=== PATIENT | female | born 1995 | race Caucasian/White ===

== ENCOUNTER 2021-12-28 23:33 | Emergency (ER) | payer OTHER ==
[2021-12-28 23:44] VITALS: BP 154/90; PULSE 85; RESP 19; TEMP 98
--- NOTE | 2021-12-29 00:17 | ED ---
General Adult HPI - General Chief complaint: Extremity Injury, Lower Stated complaint: lt leg bruising Time Seen by Provider: 12/28/21 23:50 Source: patient Mode of arrival: ambulatory - History of Present Illness Initial comments: Dictation was produced using [employer] dictation software. please excuse any grammatical, word or spelling errors. Chief Complaint: 26 yo female presents to the emergency department for left lower leg pain History of Present Illness: Patient is a 26-year-old female presents emergency department for evaluation of left leg injury. Patient states that 7 days ago she was at work when she struck the anterior badillo of her left lower leg with a metal door. The last 48 hours she noticed that there was some bruising localized around her left lateral malleolus. Patient has no pain at the ankle. She states that the pain is only at the anterior badillo The ROS documented in this emergency department record has been reviewed and co nfirmed by me. Those systems with pertinent positive or negative responses have been documented in the HPI. All other systems are other negative and/or noncontributory. PHYSICAL EXAM: General Impression: Alert and oriented x3, not in acute distress HEENT: Normocephalic atraumatic, extra-ocular movements intact, pupils equal and reactive to light bilaterally, mucous membranes moist. Cardiovascular: Heart regular rate and rhythm Chest: Able to complete full sentences, no retractions, no tachypnea Abdomen: abdomen soft, non-tender, non-distended, no organomegaly Musculoskeletal: Pulses present and equal in all extremities, no peripheral edema Laboratory: There does appear to be a area of ecchymoses on the anterior badillo. There also appears to be non-tender ecchymosis around the lateral malleolus Motor: no focal deficits noted Neurological: CN II-XII grossly intact, no focal motor or sensory deficits noted Skin: Intact with no visualized rashes Psych: Normal affect and mood ED course: 26-year-old female presents to the emergency department for bruising secondary to left lower leg injury. X-rays unremarkable. Vital signs are stable. Reassurance provided. Patient be discharged. - Related Data Home Medications Medication Instructions Recorded Confirmed Albuterol Sulfate [Proair Hfa] 2 puff INHALATION DAILY PRN 09/27/13 01/05/16 Budesonide/Formoterol Fumarate 2 puff INHALATION BID 09/27/13 01/05/16 [Symbicort 160-4.5 Mcg Inhaler] Famotidine [Pepcid] 1 tab PO DAILY PRN 09/27/13 01/05/16 Previous Rx's Medication Instructions Recorded Hydrocodone/Acetaminophen [[place] 1 each PO Q4HR PRN #30 tab 09/29/13 5-325] Famotidine [Pepcid] 20 mg PO DAILY #14 tablet 01/05/16 Allergies Allergy/AdvReac Type Severity Reaction Status Date / Time No Known Allergies Allergy Verified 12/28/21 23:44 Review of Systems ROS Statement: Those systems with pertinent positive or pertinent negative responses have been documented in the HPI. ROS Other: All systems not noted in ROS Statement are negative. Past Medical History Past Medical History: Asthma, COPD, GERD/Reflux, Neurologic Disorder Additional Past Medical History / Comment(s): MULTIPLE BRONCHITIS. MIGRAINES. HYPOTHYROID (NO MEDS) History of Any Multi-Drug Resistant Organisms: None Reported Past Surgical History: Cholecystectomy, Tonsillectomy Past Anesthesia/Blood Transfusion Reactions: No Reported Reaction Past Psychological History: Anxiety Past Alcohol Use History: Occasional Past Drug Use History: None Reported Course Vital Signs 12/28/21 23:39 Temperature 98 F Pulse Rate 85 Respiratory 19 Rate Blood Pressure 154/90 O2 Sat by Pulse 100 Oximetry Disposition Clinical Impression: Contusion of leg Disposition: HOME SELF-CARE Condition: Good Instructions (If sedation given, give patient instructions): Contusion in Adults (ED) Is patient prescribed a controlled substance at d/c from ED?: No Referrals: Sejal Chapman MD [Primary Care Provider] - 1-2 days Time of Disposition: 00:51
--- NOTE | 2021-12-29 00:47 | XR ---
EXAMINATION TYPE: XR tibia fibula LT DATE OF EXAM: 12/29/2021 COMPARISON: NONE HISTORY: Pain TECHNIQUE: 4 views FINDINGS: The tibia and fibula appear intact. There is plantar and Achilles calcaneal spurring. I see no fracture nor dislocation. The knee joint and ankle joint appear intact. IMPRESSION: No fracture seen.
== END 2021-12-29 01:04 | disposition home or self-care (01) ==
LOC: EC 23:33
DX: S80.12XA Contusion of left lower leg, initial encounter (principal); J44.9 Chronic obstructive pulmonary disease, unspecified; G43.909 Migraine, unspecified, not intractable, without status migrainosus; E03.9 Hypothyroidism, unspecified; F41.9 Anxiety disorder, unspecified; Z72.89 Other problems related to lifestyle; Z79.51 Long term (current) use of inhaled steroids; Z79.890 Hormone replacement therapy
CPT/HCPCS: 99283

== ENCOUNTER 2022-02-08 20:31 | Emergency (ER) | payer OTHER ==
[2022-02-08 21:29] VITALS: TEMP 98.2
--- NOTE | 2022-02-08 21:53 | XR ---
EXAMINATION TYPE: XR chest 2V DATE OF EXAM: 02/08/2022 COMPARISON: 11/06/2014 HISTORY: Cough TECHNIQUE: 2 view FINDINGS: Heart and mediastinum are normal. Lungs are clear. Diaphragm is normal. Bony thorax appears normal. IMPRESSION: Normal chest. No change.
[2022-02-08] MEDS ORDERED: predniSONE 20 MG TAB PO STA (22:46)
[2022-02-08] MEDS ORDERED: IPRATROPIUM-ALBUTEROL 3 ML NEB INHALATION STA (22:47)
--- NOTE | 2022-02-08 23:08 | ED ---
SOB HPI - General Chief Complaint: Shortness of Breath Stated Complaint: SOB, congestion Time Seen by Provider: 02/08/22 22:41 Source: patient, RN notes reviewed Mode of arrival: ambulatory Limitations: no limitations - History of Present Illness Initial Comments: patient presents to symptomology consistent with an asthma exacerbation. Mild wheezing. No respiratory distress or has a nebulizer at home which she used twice prior to arrival. She also takes a controller medication and has a rescue inhaler. patient COVID-19 one month ago and got over that. Patient has not had a fever. Clear runny nose, scratchy throat, No headache, no fever or chills, no changes in vision or hearing, POSITIVE runny nose, no sore throat or difficulty with speech, no neck pain, no chest pain, no abdominal pain, no nausea or vomiting, no changes in urination or bowel movements, no numbness or tingling, no extremity pain, no skin rashes or lesions. Past medical, surgical, social, and family history reviewed. Onset/Timin -: days(s) - Related Data Home Medications Medication Instructions Recorded Confirmed Albuterol Sulfate [Proair Hfa] 2 puff INHALATION DAILY PRN 09/27/13 01/05/16 Budesonide/Formoterol Fumarate 2 puff INHALATION BID 09/27/13 01/05/16 [Symbicort 160-4.5 Mcg Inhaler] Famotidine [Pepcid] 1 tab PO DAILY PRN 09/27/13 01/05/16 Previous Rx's Medication Instructions Recorded Hydrocodone/Acetaminophen [[place] 1 each PO Q4HR PRN #30 tab 09/29/13 5-325] Famotidine [Pepcid] 20 mg PO DAILY #14 tablet 01/05/16 predniSONE [Deltasone] 60 mg PO DIRECTED #12 tab 02/08/22 Allergies Allergy/AdvReac Type Severity Reaction Status Date / Time No Known Allergies Allergy Verified 02/08/22 21:29 Review of Systems ROS Statement: Those systems with pertinent positive or pertinent negative responses have been documented in the HPI. ROS Other: All systems not noted in ROS Statement are negative. Past Medical History Past Medical History: Asthma, COPD, GERD/Reflux, Neurologic Disorder Additional Past Medical History / Comment(s): MULTIPLE BRONCHITIS. MIGRAINES. HYPOTHYROID (NO MEDS) History of Any Multi-Drug Resistant Organisms: None Reported Past Surgical History: Cholecystectomy, Tonsillectomy Past Anesthesia/Blood Transfusion Reactions: No Reported Reaction Past Psychological History: Anxiety Smoking Status: Current every day smoker Past Alcohol Use History: Occasional Past Drug Use History: None Reported General Exam - General Exam Comments Initial Comments: Vital signs stable, patient afebrile. Patient does not appear to be ill or toxic. Limitations: no limitations General appearance: alert, in distress (Mild), obese Head exam: Present: atraumatic, normocephalic, normal inspection Eye exam: Present: normal appearance, PERRL, EOMI. Absent: scleral icterus, conjunctival injection, periorbital swelling ENT exam: Present: normal exam, normal oropharynx, mucous membranes moist, TM's normal bilaterally, normal external ear exam. Absent: mucous membranes dry Neck exam: Present: normal inspection, full ROM. Absent: tenderness, meningismus, lymphadenopathy Respiratory exam: Present: wheezes (Scattered wheezes bilaterally), chest wall tenderness, accessory muscle use, other (Good air entry). Absent: respiratory distress, rales, rhonchi, stridor, decreased breath sounds, prolonged expiratory Cardiovascular Exam: Present: regular rate, normal rhythm, normal heart sounds. Absent: systolic murmur, diastolic murmur, rubs, gallop, clicks GI/Abdominal exam: Present: soft, normal bowel sounds. Absent: distended, tenderness, guarding, rebound, rigid Extremities exam: Present: normal inspection, full ROM, normal capillary refill. Absent: tenderness, pedal edema, joint swelling, calf tenderness Back exam: Present: normal inspection Neurological exam: Present: alert, oriented X3, CN II-XII intact Psychiatric exam: Present: normal affect, normal mood Skin exam: Present: warm, dry, intact, normal color. Absent: rash Course Vital Signs 02/08/22 02/08/22 02/08/22 21:26 23:17 23:21 Temperature 98.2 F Pulse Rate 85 84 84 Respiratory 20 22 Rate Blood Pressure 143/79 119/79 O2 Sat by Pulse 98 95 Oximetry 02/08/22 23:24 Temperature Pulse Rate 80 Respiratory Rate Blood Pressure O2 Sat by Pulse Oximetry - Reevaluation(s) Reevaluation #1: 02/08/22 23:34 Medical record is reviewed Symptoms are improved here in the emergency department Patient is informed of results and questions answered Patient in no distress Medical Decision Making - Medical Decision Making Patient symptomology consistent with seasonal rhinitis with complicating asthma exacerbation. Does not appear to be ill or toxic. Chest x-ray was clear. Corticosteroids as well as a DuoNeb treatment here with additional albuterol. Patient was told to return to the ER for any signs or symptoms worsen. Told to return immediately if any other problems arise. All questions answered. Treatment plan discussed. Patient in agreement Every effort has been made to ensure accuracy of this dictation. However, due to the limitations of electronic medical records and dictation devices, errors in charting still occur. 60 mg of prednisone for an additional 4 days. Patient told to use her home nebulizer every 4 hours as needed for wheezing. Follow-up with regular physician. Supervising physicians Dr. Monaco - Radiology Data Radiology results: report reviewed, image reviewed Disposition Clinical Impression: Acute asthma exacerbation Disposition: HOME SELF-CARE Condition: Good Instructions (If sedation given, give patient instructions): Asthma (ED) Additional Instructions: Use your home nebulizer every 4 hours as needed for cough or wheezing. supervisor aircraft cleaning the prescription and take the prednisone as directed. Follow-up with your regular physician as directed. Return to the ER immediately if any symptoms worsen, new symptoms arise, or any other problems develop. Prescriptions: predniSONE [Deltasone] 60 mg PO DIRECTED #12 tab Is patient prescribed a controlled substance at d/c from ED?: No Referrals: None,Stated [REFERRING] - 1-2 days Time of Disposition: 23:34
[2022-02-08 23:22] VITALS: BP 119/79
[2022-02-08 23:59] VITALS: PULSE 86; RESP 20
== END 2022-02-08 23:58 | disposition home or self-care (01) ==
LOC: EC 20:31
DX: J45.901 Unspecified asthma with (acute) exacerbation (principal); K21.9 Gastro-esophageal reflux disease without esophagitis; F41.9 Anxiety disorder, unspecified; F17.200 Nicotine dependence, unspecified, uncomplicated; Z79.51 Long term (current) use of inhaled steroids
CPT/HCPCS: 94640; 71046; 99284; J7512

== ENCOUNTER 2024-08-13 20:44 | Emergency (ER) | payer OTHER ==
--- NOTE | 2024-08-13 21:33 | XR ---
EXAMINATION TYPE: XR chest 2V DATE OF EXAM: 08/13/2024 9:19 PM COMPARISON: 02/08/2022 CLINICAL INDICATION: Female, 29 years old with history of Cough, dyspnea, TECHNIQUE: Frontal and lateral views of the chest are obtained. FINDINGS: There is no focal air space opacity, pleural effusion, or pneumothorax seen. The cardiac silhouette size is within normal limits. The osseous structures are intact. IMPRESSION: No acute cardiopulmonary process. [facility], , 08/13/2024 9:31 PM
[2024-08-13 22:18] LABS: Influenza A Not Detected (Not Detectd); Influenza B Not Detected (Not Detectd); RSV Not Detected (Not Detectd)
[2024-08-13] MEDS: IPRATROPIUM-ALBUTEROL 3 ML NEB INHALATION STA (22:22)
--- NOTE | 2024-08-13 22:23 | ED ---
URI HPI - General Chief Complaint: Upper Respiratory Infection Stated Complaint: SOB, cough, congestion Time Seen by Provider: 08/13/24 20:59 Source: patient, RN notes reviewed Mode of arrival: wheelchair Limitations: no limitations - History of Present Illness Initial Comments: This is a 29-year-old female with history of asthma presenting for sick symptoms x 11 days. Patient endorses congestion, productive cough with phlegm, nausea and shortness of breath as well as night chills. Denies fever, fatigue, chest pain, abdominal pain, vomiting/diarrhea. MD Complaint: cough, nasal congestion Onset/Timin -: days(s) Associated Symptoms: chills, shortness of breath, nausea - Related Data Home Medications Medication Instructions Recorded Confirmed Albuterol Sulfate [Proair Hfa] 2 puff INHALATION DAILY PRN 09/27/13 01/05/16 Budesonide/Formoterol Fumarate 2 puff INHALATION BID 09/27/13 01/05/16 [Symbicort 160-4.5 Mcg Inhaler] Famotidine [Pepcid] 1 tab PO DAILY PRN 09/27/13 01/05/16 Previous Rx's Medication Instructions Recorded Hydrocodone/Acetaminophen [[place] 1 each PO Q4HR PRN #30 tab 09/29/13 5-325] Famotidine [Pepcid] 20 mg PO DAILY #14 tablet 01/05/16 Albuterol Inhaler [Ventolin Hfa 2 puff INHALATION Q4HR PRN #1 each 02/08/22 Inhaler] Albuterol Nebulized [[place]ent[place] 2.5 mg INHALATION Q4H #50 ml 02/08/22 Nebulized] predniSONE [Deltasone] 60 mg PO DIRECTED #12 tab 02/08/22 Albuterol Nebulized [[place] 2.5 mg INHALATION Q4H PRN #75 ml 08/13/24 Nebulized] predniSONE 50 mg PO DAILY #5 tab 08/13/24 Allergies Allergy/AdvReac Type Severity Reaction Status Date / Time No Known Allergies Allergy Verified 08/13/24 20:56 Review of Systems ROS Statement: Those systems with pertinent positive or pertinent negative responses have been documented in the HPI. ROS Other: All systems not noted in ROS Statement are negative. Past Medical History Past Medical History: Asthma, COPD, GERD/Reflux, Neurologic Disorder Additional Past Medical History / Comment(s): MULTIPLE BRONCHITIS. MIGRAINES. HYPOTHYROID (NO MEDS) History of Any Multi-Drug Resistant Organisms: None Reported Past Surgical History: Cholecystectomy, Tonsillectomy Past Anesthesia/Blood Transfusion Reactions: No Reported Reaction Past Psychological History: Anxiety Smoking Status: Current every day smoker, Vaper Past Alcohol Use History: Heavy Past Drug Use History: Marijuana General Exam Limitations: no limitations General appearance: alert, in no apparent distress Head exam: Present: atraumatic, normocephalic, normal inspection Eye exam: Present: normal appearance, PERRL, EOMI. Absent: scleral icterus, conjunctival injection, periorbital swelling ENT exam: Present: normal exam, mucous membranes moist Neck exam: Present: normal inspection. Absent: tenderness, meningismus, lymphadenopathy Respiratory exam: Present: wheezes, decreased breath sounds, prolonged expiratory. Absent: respiratory distress, rales, rhonchi, stridor, accessory muscle use Cardiovascular Exam: Present: regular rate, normal rhythm, normal heart sounds. Absent: systolic murmur, diastolic murmur, rubs, gallop, clicks GI/Abdominal exam: Present: soft, normal bowel sounds. Absent: distended, t enderness, guarding, rebound, rigid Extremities exam: Present: normal inspection, full ROM, normal capillary refill. Absent: tenderness, pedal edema, joint swelling, calf tenderness Back exam: Present: normal inspection Neurological exam: Present: alert, oriented X3, CN II-XII intact Psychiatric exam: Present: normal affect, normal mood Skin exam: Present: warm, dry, intact, normal color. Absent: rash Course Vital Signs 08/13/24 08/13/24 08/13/24 20:56 21:31 22:22 Temperature 98.1 F Pulse Rate 88 88 Respiratory 18 18 Rate Blood Pressure 131/80 O2 Sat by Pulse 96 Oximetry 08/13/24 08/13/24 22:31 22:50 Temperature 97.7 F Pulse Rate 90 86 Respiratory 20 Rate Blood Pressure 138/86 O2 Sat by Pulse 98 Oximetry Medical Decision Making - Medical Decision Making Was pt. sent in by a medical professional or institution (, PA, VACUUM COOKER OPERATOR, urgent care, hospital, or intermediate...) When possible be specific @ -No Did you speak to anyone other than the patient for history (EMS, parent, family, police, friend...)? What history was obtained from this source @ -No Did you review nursing and triage notes (agree or disagree)? Why? @ -I reviewed and agree with nursing and triage notes Were old charts reviewed (outside hosp., previous admission, EMS record, old EKG, old radiological studies, urgent care reports/EKG's, intermediate records)? Report findings @ -No old charts were reviewed Differential Diagnosis (chest pain, altered mental status, abdominal pain women, abdominal pain men, vaginal bleeding, weakness, fever, dyspnea, syncope, headache, dizziness, GI bleed, back pain, seizure, CVA, palpatations, mental health, musculoskeletal)? @ -Differential Fever: Pneumonia, viral URI, endocarditis, myocarditis, pericarditis, otitis, sinusitis, peritonsillar Abscess, retropharyngeal Abscess, epiglottitis, peritonitis, appendicitis, [place] cystitis, diverticulitis, hepatitis, colitis, UTI, PID, TOA, pyelonephritis, prostatitis, epididymitis, meningitis, encephalitis, pulmonary embolism, CVA, thyroid storm, pancreatitis, adrenal crisis, cavernous sinus thrombosis, this is not meant to be an all-inclusive list. EKG interpreted by me (3pts min.). @ -Not done X-rays interpreted by me (1pt min.). @ -CXR shows no acute cardiopulmonary process. CT interpreted by me (1pt min.). @ -None done U/S interpreted by me (1pt. min.). @ -None done What testing was considered but not performed or refused? (CT, X-rays, U/S, labs)? Why? @ -None What meds were considered but not given or refused? Why? @ -None Did you discuss the management of the patient with other professionals (professionals i.e. , PA, VACUUM COOKER OPERATOR, lab, RT, psych nurse, social worker delinquency prevention, paper grader, teacher, safety security officer, family preservation caseworker)? Give summary @ -No Was smoking cessation discussed for >3mins.? @ -No Was critical care preformed (if so, how long)? @ -No Were there social determinants of health that impacted care today? How? (Homelessness, low income, unemployed, alcoholism, drug addiction, transportation, low edu. Level, literacy, decrease access to med. care, long-term, rehab)? @ -No Was there de-escalation of care discussed even if they declined (Discuss DNR or withdrawal of care, Hospice)? DNR status @ -No What co-morbidities impacted this encounter? (DM, HTN, Smoking, COPD, CAD, Cancer, CVA, ARF, Chemo, Hep., AIDS, mental health diagnosis, sleep apnea, morbid obesity)? @ -None Was patient admitted / discharged? Hospital course, mention meds given and route, prescriptions, significant lab abnormalities, going to OR and other pertinent info. @ -Cepheid test negative. CXR shows no acute cardiopulmonary process. Patient provided IM Solu-Medrol and DuoNeb treatment. Patient notes improvement with breathing. Discharged with Zofran starter pack. Prednisone and albuterol inhaler sent to patient's pharmacy. Recommended follow-up with PCP. Discussed patient with Dr. Kumari. Undiagnosed new problem with uncertain prognosis? @ -No Drug Therapy requiring intensive monitoring for toxicity (Heparin, Nitro, Insulin, Cardizem)? @ -No Were any procedures done? @ -No Diagnosis/symptom? @ -URI, bronchitis Acute, or Chronic, or Acute on Chronic? @ -Acute Uncomplicated (without systemic symptoms) or Complicated (systemic symptoms)? @ -Complicated Side effects of treatment? @ -No Exacerbation, Progression, or Severe Exacerbation? @ -No Poses a threat to life or bodily function? How? (Chest pain, [place], [place], pneumonia, PE, COPD, DKA, ARF, appy, cholecystitis, CVA, Diverticulitis, Homicidal, Suicidal, threat to staff... and all critical care pts) @ -No - Lab Data Lab Results 08/13/24 Range/Units 21:28 Influenza Type A (PCR) Not Detected (Not Detectd) Influenza Type B (PCR) Not Detected (Not Detectd) RSV (PCR) Not Detected (Not Detectd) SARS-CoV-2 (PCR) Not Detected (Not Detectd) Disposition Clinical Impression: Upper respiratory tract infection, Bronchitis Disposition: HOME SELF-CARE Condition: Good Instructions (If sedation given, give patient instructions): Upper Respiratory Infection (ED), Acute Bronchitis (ED) Additional Instructions: Alternate Tylenol/Motrin every 4 hours for fever/pain. Saline nasal spray or Flonase for nasal congestion. Warm fluids, honey and humidifier for cough. Follow-up with PCP for any ongoing symptoms. Prescriptions: predniSONE 50 mg PO DAILY #5 tab Albuterol Nebulized [Ventolin Nebulized] 2.5 mg INHALATION Q4H PRN #75 ml PRN Reason: difficulty in breathing Is patient prescribed a controlled substance at d/c from ED?: No Referrals: Sejal Chapman MD [Primary Care Provider] - 1-2 days Time of Disposition: 22:34
[2024-08-13] MEDS: methylPREDNISolone SOD SUCCI 125 MG/2 ML VIAL IM ONE (22:47)
[2024-08-13] MEDS: ONDANSETRON 4 MG ODT STARTER PACK 2 TAB BTL PO STA (22:51)
[2024-08-13 22:54] VITALS: BP 138/86; PULSE 86; RESP 20; TEMP 97.7
== END 2024-08-13 22:50 | disposition home or self-care (01) ==
LOC: EC 20:44
DX: J06.9 Acute upper respiratory infection, unspecified (principal); J40 Bronchitis, not specified as acute or chronic; F17.290 Nicotine dependence, other tobacco product, uncomplicated
CPT/HCPCS: 94640; 87636; 71046; 99285; 96372; J2919